=== PATIENT | male | born 1970 | race Caucasian/White ===

== ENCOUNTER 2016-06-16 13:33 | Emergency (ER) | payer OTHER ==
--- NOTE | 2016-06-16 14:56 | UC ---
Respiratory Complaint HPI - HPI Summary HPI Summary: . 45 yo male with PMH of HTN who presents with 3 days of nasal congestion, fever, non-productive cough, body aches, decreased appetite, BORJAS. Patient reports he has not taken his blood pressure medication in "days". No N/V/D. Denies ear pain or sore throat. Denies dizziness. Reports mild SOB, no CP - History of Current Complaint Chief Complaint: UCRespiratory Stated Complaint: FEVERISH,BODY ACHES Time Seen by Provider: 06/16/16 14:26 Hx Obtained From: Patient Onset/Duration: Gradual Onset Severity Initially: Moderate Severity Currently: Moderate Character: Cough: Nonproductive Aggravating Factors: Exertion, Deep Breaths Alleviating Factors: Nothing Associated Signs And Symptoms: Positive: Fever, Chills, URI, Nasal Congestion. Negative: Wheezing, Dizziness - Risk Factors Pulmonary Embolism Risk Factors: Negative Cardiac Risk Factors: Hypertension Pseudomonas Risk Factors: Negative Tuberculosis Risk Factors: Negative - Allergies/Home Medications Allergies/Adverse Reactions: Allergies Allergy/AdvReac Type Severity Reaction Status Date / Time Bee Venom Allergy Hives Verified 06/16/16 13:54 PMH/Surg Hx/FS Hx/Imm Hx Previously Healthy: No Cardiovascular History Of: Reports: Hypertension - Surgical History Surgical History: None - Family History Known Family History: Positive: Hypertension - Social History Occupation: Employed Full-time Lives: With Family Alcohol Use: Rare Substance Use Type: None Smoking Status (MU): Former Smoker Have You Smoked in the Last Year: No When Did the Patient Quit Smoking/Using Tobacco: 2006 - Immunization History Most Recent Influenza Vaccination: not this season Hx Tetanus, Diphtheria Vaccination: Yes Vaccination Up to Date: Yes Review of Systems Constitutional: Chills, Fatigue Skin: Negative Eyes: Negative ENT: Negative Respiratory: Shortness Of Breath, Cough Cardiovascular: Negative Gastrointestinal: Negative Genitourinary: Negative Motor: Negative Neurovascular: Negative Musculoskeletal: Negative Psychological: Negative All Other Systems Reviewed And Are Negative: Yes Physical Exam Triage Information Reviewed: Yes Appearance: No Pain Distress, Ill-Appearing, Obese Vital Signs: Initial Vital Signs Temp 99.3 F 06/16/16 13:55 Pulse 117 06/16/16 13:55 Resp 20 06/16/16 13:55 BP 184/113 06/16/16 13:55 Pulse Ox 97 06/16/16 13:55 Eyes: Positive: Conjunctiva Clear ENT: Positive: Pharynx normal, Nasal congestion, TMs normal Neck: Positive: Supple, Nontender, Tenderness @ - bilateral tonsilar nodes, Enlarged Nodes @ - tonsilar 2+ b/l Respiratory: Positive: Chest non-tender, No respiratory distress, Decreased breath sounds - right lower lobe. Negative: No accessory muscle use, Respiratory distress, Accessory muscle use Cardiovascular: Positive: RRR, No Murmur, Pulses Normal, Brisk Capillary Refill , Tachycardia Abdomen Description: Positive: Nontender, Soft. Negative: CVA Tenderness (R), CVA Tenderness (L), Distended, Guarding Bowel Sounds: Positive: Present Musculoskeletal: Positive: Strength Intact, ROM Intact Neurological: Positive: Alert Skin Exam: Normal UC Diagnostic Evaluation - Laboratory O2 Sat by Pulse Oximetry: 97 Respiratory Course/Dx - Differential Dx/Diagnosis Provider Diagnoses: 1. Influenza A. 2. tachycardiac concern for sepsis. 3. Hypertension, uncontrolled - Physician Notification/Consults Discussed Patient Care With: Claudia Bradshaw NP [facility] Time Discussed With Above Provider: 15:20 Instructed by Provider To: Transfer - by private car to [facility] Discharge - Discharge Plan Condition: Guarded Disposition: ADMITTED TO OTHER HOSPITAL Discharge Disposition Comment: [facility] Patient Education Materials: Influenza (ED) Referrals: Gianna Vega MD [Primary Care Provider] -
[2016-06-16 15:23] VITALS: BP 173/127
== END 2016-06-16 15:20 | disposition short-term general hospital (02) ==
LOC: UCCORT 13:33
DX: J10.1 Influenza due to other identified influenza virus with other respiratory manifestations (principal); R00.0 Tachycardia, unspecified; I10 Essential (primary) hypertension; E66.9 Obesity, unspecified; Z87.891 Personal history of nicotine dependence
CPT/HCPCS: 87502; 99213; G0463

== ENCOUNTER 2016-11-27 07:08 | Emergency (ER) | payer OTHER ==
--- NOTE | 2016-11-27 07:27 | UC ---
Ear Complaint HPI - HPI Summary HPI Summary: 46 yo male with left ear ache x days mild URI symptoms - History of Current Complaint Chief Complaint: UCEar Stated Complaint: EAR PAIN Time Seen by Provider: 11/27/16 07:20 Hx Obtained From: Patient Onset/Duration: Gradual Onset, Lasting Days Severity Initially: Mild Severity Currently: Moderate Pain Intensity: 4 Pain Scale Used: 0-10 Numeric Associated Signs/Symptoms: Positive: Hearing Loss, URI Symptoms - Allergies/Home Medications Allergies/Adverse Reactions: Allergies Allergy/AdvReac Type Severity Reaction Status Date / Time Bee Venom Allergy Hives Verified 11/27/16 07:12 Home Medications: Home Medications Diltiazem HCl Coated Beads [Cardizem 180 MG LA] 360 mg PO DAILY 11/27/16 [ History Confirmed 11/27/16] Propranolol TAB* [Inderal TAB*] 80 mg PO DAILY 11/27/16 [History Confirmed 11/27] PMH/Surg Hx/FS Hx/Imm Hx Previously Healthy: Yes Cardiovascular History: Hypertension - Surgical History Surgical History: None - Family History Known Family History: Positive: Hypertension, Diabetes - Social History Alcohol Use: Rare Substance Use Type: None Smoking Status (MU): Former Smoker Have You Smoked in the Last Year: No When Did the Patient Quit Smoking/Using Tobacco: 2006 - Immunization History Most Recent Influenza Vaccination: not this season Hx Tetanus, Diphtheria Vaccination: Yes Vaccination Up to Date: Yes Review of Systems Constitutional: Negative Skin: Negative Eyes: Negative ENT: Ear Ache Respiratory: Negative Cardiovascular: Negative Gastrointestinal: Negative Genitourinary: Negative Motor: Negative Neurovascular: Negative Musculoskeletal: Negative Neurological: Negative Psychological: Negative All Other Systems Reviewed And Are Negative: Yes Physical Exam Triage Information Reviewed: Yes Appearance: Well-Appearing, No Pain Distress, Well-Nourished Vital Signs: Initial Vital Signs Temp 98.1 F 11/27/16 07:16 Pulse 82 11/27/16 07:16 Resp 18 11/27/16 07:16 BP 177/118 11/27/16 07:16 Pulse Ox 97 11/27/16 07:16 Vital Signs Reviewed: Yes Eyes: Positive: Conjunctiva Clear ENT: Positive: TM bulging - LEFT, TM red - LEFT. Negative: Hearing grossly normal, Nasal congestion, Nasal drainage, Tonsillar exudate, Trismus, Muffled/ hoarse voice Neck: Positive: Supple, Nontender, No Lymphadenopathy Respiratory: Positive: Lungs clear, Normal breath sounds, No respiratory distress, No accessory muscle use Cardiovascular: Positive: RRR, No Murmur Musculoskeletal: Positive: ROM Intact, No Edema Neurological Exam: Normal Neurological: Positive: Alert Psychological Exam: Normal Skin Exam: Normal Ear Complaint Course/Dx - Differential Dx/Diagnosis Provider Diagnoses: left otitis media. hypertension/poorly controlled Discharge - Discharge Plan Condition: Stable Disposition: HOME Prescriptions: Amoxicillin PO (*) [Amoxicillin 875 MG (*)] 875 mg PO BID #20 tab Patient Education Materials: Otitis Media (ED) Referrals: Gianna Vega MD [Primary Care Provider] - 1 Week (ear and BP recheck) Additional Instructions: aleve or advil for pain recheck for worsening symptoms
[2016-11-27 07:39] VITALS: BP 172/126
== END 2016-11-27 07:37 | disposition home or self-care (01) ==
LOC: UCCORT 07:08
DX: H66.92 Otitis media, unspecified, left ear (principal); I10 Essential (primary) hypertension; Z91.030 Bee allergy status; Z87.891 Personal history of nicotine dependence
CPT/HCPCS: 99212; G0463

== ENCOUNTER 2017-10-22 12:31 | Emergency (ER) | payer OTHER ==
--- OUTSIDE RECORDS SUMMARY | 2017-10-22 12:36 | XMS REPORT ---
:1970 External Reference #:[id number] Author Organization [facility] Address [address] [place] [address] [place] [address] Phone [phone] Care Team Providers Name Role Phone Gianna Vega MD Primary Care Physician Unavailable Payers Type Date Identification Numbers Payment Provider Subscriber Commercial Policy Number: [id number] [employer] Carlie Reynolds PayID: [id number] [address] [place] [address] Medigap Part B Expires: 2012 Policy Number: [id number] [facility] Carlie Reynolds Group Number: [id number] [address] PayID: [id number] [place] [address] Problems Date Description Provider Status Onset: 03/22/2009 Obstructive sleep apnea syndrome Radha Teresa DNP, RN, Active [employer] Onset: 02/22/2015 Essential hypertension Marshal Mace.Kaya. Active Family History Date Family Member(s) Problem(s) Comments General Lupus General Hypertension General Diabetes General Cancer Father Liver Cancer Stage 4, HTN, Hyperlipidemia, ? 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 No Do you have problems with snoring, day time fatigue? Yes Patiet is on a CPAP. Allergies, Adverse Reactions, Alerts Date Description Reaction Status Severity Comments 06/05/2009 No Known Drug Allergy active Medications Medication Date Status Form Strength Qnty SIG Indications Ordering Provider Amlodipine 09/28 Active Tablets 2.5mg 30tab 1 by I10 Darryl Corcoran Bes s mouth Ordonez, DO every day FACC Inderal LA 05/26 Active Caps ER 160mg 90cap take one I15.9 Darryl S. 24HR s tablet Ordonez, DO once a FACC day Spironolactone 05/19 Active Tablets 25mg 30tab 1 by I15.9 Darryl S. s mouth Ordonez, DO every day FACC Chlorthalidone 04/16 Active Tablets 25mg 90tab 1 by I10 Darryl S. s mouth Ordonez, DO every day FACC Cpap With Heated 03/09 Active Device Use nightly Varn, N.P. Cpap Mask And 03/02 Active Device 1unit use G47.33 s nightly Varn, N.P. with cpap machine icd 10: g47.33 (occasion ally) Flonase Allergy 04/29 Active Suspension 50mcg/Act 16uni use as J01.10 ts directed Varn, N.P. 2 sprays in each nostril daily as needed Lisinopril 04/24 Active Tablets 40mg 60tab 1 by I10 s mouth Varn, N.P. every day Florastor 08/30 Hx Capsules 250mg 60cap 1 by R19.7 s mouth Varn, N.P. - twice a Hydralazine HCL 06/10 Hx Tablets 50mg 30tab Take one I15.9 Darryl S. s tablet Ordonez, DO - every 8 FACC 04/08 hours needed for top systolic BP > 180 mmHg or diastolic bottom BP > 100 mmHg Inderal LA 05/26 Hx Caps ER 120mg 60cap Take two I15.9 Darryl S. /2017 24HR s tablets DO José Luis - (240 mg) FACC 05/26 once a day Amlodipine 05/04 Hx Tablets 10mg 30tab Take one I10 Darryl S. Besylate s tablet by DO José Luis - mouth FACC 09/28 every day Motrin Ib 03/02 Hx Tablets 200mg 1-2 twice a day as Varn, N.P. - needed 05/19 Cardizem CD 08/25 Hx Caps ER 180mg 60cap take 1 I10 24HR s capsules Varn, N.P. - once 05/04 daily /2017 Azithromycin 06/26 Hx Tablets 250mg 6tabs two tabs day one, Varn, N.P. - one daily 07/06 till Tamiflu 06/17 Hx Capsules 75mg 10cap 1 by s mouth Varn, N.P. - twice a 06/22 day x days Cardizem CD 04/29 Hx Caps ER 360mg 1 by 24HR mouth Varn, N.P. - every day 04/29 Cardizem CD 04/29 Hx Caps ER 240mg 60cap 1 tab by 24HR s mouth Varn, N.P. - every day 08/25 in the morning Amoxicillin/Clavu 04/29 Hx Tablets 875-125mg 20tab one J01.10 lanate s tablet by Varn, N.P. - mouth 05/09 twice daily for 10 days Ramipril 02/25 Hx Capsules 10mg 60cap 2 by I10 s mouth Varn, N.P. - every day 04/29 Inderal LA 08/08 Hx Caps ER 120mg 30cap one po I15.9 24HR s daily Varn, N.P. - 05/26 Cardizem CD 07/14 Hx Caps ER 360mg 30cap one po 24HR s daily Varn, N.P. - 04/29 Cardizem CD 06/30 Hx Caps ER 240mg 30cap 1 by 24HR s mouth Varn, N.P. - every day 07/14 Cardizem CD 05/14 Hx Caps ER 120mg 30cap 1 by 24HR s mouth Varn, N.P. - every day 06/30 Viagra 03/25 Hx Tablets 50mg 18tab 1 tablet F52.21 s once Varn, N.P. - daily as 05/26 Escitalopram 02/22 Hx Tablets 10mg 30tab 1 by F41.9 Oxalate s mouth Varn, N.P. - every day 06/11 Augmentin 11/06 Hx Tablets 875-125mg 20tab one by 380.22 s mouth Varn, N.P. - every 12 08/05 hours ten days Metoprolol 09/13 Hx Tablets ER 50mg 30tab 1 by I10 Elba Succinate 24HR s mouth Varn, N.P. - every day 06/11 Chlorthalidone 08/30 Hx Tablets 25mg 30tab One 401.1 Magen s tablet PO Destiny, [employer] - once 09/13 daily. Amlodipine 08/16 Hx Tablets 5mg 30tab 2 by 401.1 Elba s mouth Varn, N.P. - every day 09/13 Metaxalone 08/16 Hx Tablets 800mg 30tab take 1 724.1 s tablet 3 Varn, N.P. - times a 08/30 day needed Lisinopril 06/15 Hx Tablets 40mg 30tab 1 by I10 s mouth Varn, N.P. - every day 06/11 Hydrochlorothiazi 06/15 Hx Tablets 25mg 30tab 1 by I10 Elba s mouth Varn, N.P. - every day 04/16 Transderm-Scop 11/29 Hx Patches 1.5mg 8unit apply one 272.4 72HR s patch Varn, N.P. - behind 02/25 ear 72 hours Lisinopril-Hydroc 11/29 Hx Tablets 20-25mg 90tab 1 by 401.1 Elba hlorothiazide s mouth Varn, N.P. - every day 06/15 Azithromycin 01/24 Hx Tablets 250mg 6tabs two tabs 461.9 day one, Varn, N.P. - one daily 02/03 till Fluticasone 01/24 Hx Suspension 50mcg/Act 16gm 1 spray 461.9 Elba Propionate each Varn, N.P. - nostril 02/23 daily needed Amoxicillin/Clavu 11/12 Hx Tablets 875-125mg 20tab one 461.9 Elba lanate Potassium s tablet by Varn, N.P. - mouth 11/22 twice daily for 10 days Transderm-Scop 10/22 Hx Patches 1.5mg 8unit apply one 994.6 72HR s patch Alirio, N.P. - behind 01/24 ear 72 hours Nasonex 10/08 Hx Suspension 50mcg/Act 3unit 2 sprays 477.9 s to each Varn, N.P. - nostril 01/24 daily Lisinopril/Hydroc 10/08 Hx Tablets 20-25mg 90tab take one 401.1 Elba hlorothiazide s tablet by Varmarshal, N.P. - mouth 11/29 daily Diovan HCT 04/01 Hx Tablets 160-12.5m 30tab 1 po qd Gianna Gilbert Mir M.D. 10/22 Amlodipine 04/01 Hx Tablets 5mg 30tab 1 po qd Gianna Besylate Gilbert Harvey M.D. 10/22 Levofloxacin 02/02 Hx Tablets 500mg 7tabs 1 po qd 380.10 Gilbert Juarez M.D., FACP 03/31 Diovan HCT 10/30 Hx Tablets 320-25mg 90tab 1 po qd 401.1 Gilbert Kumar M.D., FACP 02/02 Hydrochlorothiazi 08/12 Hx Tablets 12.5mg 90tab 1 po qd Kerrie Gilbert Kumar M.D., FACP 02/02 Diovan HCT 08/12 Hx Tablets 320-25mg 90tab 1 po qd s Gilbert uJarez M.D., FACP 04/01 Cyclobenzaprine 06/20 Hx Tablets 5mg 30tab 1 by s mouth at Ann, - bedtime M.Frances, FACP 08/06 as needed for back pain Physical Therapy 06/20 Hx for upper back pain Gilbert Juarez M.D., FACP 08/06 Augmentin 01/21 Hx Tablets 875-125mg 20tab one by s mouth Ann, - every 12 M.D., FACP 01/31 hours ten days Flonase 01/21 Hx Suspension 50mcg/Act 1unit 1 s intranasa Gilbert Juarez puparvin to Charmaine, FACP 10/30 nostril daily Diovan HCT 00 Hx Tablets 320-12.5m 90tab 1 tablet Gianna /0000 g s daily Gilbert Vega M.D. 08/12 Mucinex Hx Tablets ER 600mg 60tab 1 tab bid Unknown /0000 12HR s po prn - 05/05 Immunizations CPT Code Status Date Vaccine Lot # [id number] Given 01/22/2009 Tdap - Tetanus/Diptheria/Acellular Pertussis Vital Signs Date Vital Result Comment 09/28/2017 Height 65 inches 5'5" Weight 236.00 lb Heart Rate 62 /min BP Systolic Sitting 115 mmHg left arm BP Diastolic Sitting 60 mmHg left arm BP Systolic Standing 120 mmHg left arm BP Diastolic Standing 64 mmHg left arm BMI (Body Mass Index) 39.3 kg/m2 Ejection Fraction 55-60% 04-22-2017 08/30/2017 Weight 238.00 lb Heart Rate 71 /min BP Systolic 120 mmHg BP Diastolic 78 mmHg Body Temperature 97.5 F O2 % BldC Oximetry 96 % 07/19/2017 Height 65 inches 5'5" Weight 236.12 lb Heart Rate 68 /min BP Systolic Sitting 100 mmHg Lue large cuff BP Diastolic Sitting 70 mmHg Lue large cuff Respiratory Rate 18 /min O2 % BldC Oximetry 96 % On Ra BMI (Body Mass Index) 39.3 kg/m2 06/10/2017 Height 65 inches 5'5" Weight 239.00 lb with shoes Heart Rate 66 /min BP Systolic Sitting 120 mmHg Rue lrg cuff BP Diastolic Sitting 90 mmHg Rue lrg cuff BP Systolic Standing 118 mmHg Rue lrg cuff BP Diastolic Standing 78 mmHg Rue lrg cuff Respiratory Rate 17 /min BMI (Body Mass Index) 39.8 kg/m2 Ejection Fraction 55-60% 04/22/2017-echo 05/27/2017 Height 65 inches 5'5" Weight 237.00 lb with shoes Heart Rate 74 /min BP Systolic Sitting 120 mmHg Lue large cuff BP Diastolic Sitting 80 mmHg Lue large cuff Respiratory Rate 16 /min O2 % BldC Oximetry 95 % On Ra BMI (Body Mass Index) 39.4 kg/m2 05/26/2017 Height 65 inches 5'5" Weight 237.00 lb Heart Rate 74 /min BP Systolic Sitting 134 mmHg Rue large cuff BP Diastolic Sitting 102 mmHg Rue large cuff BP Systolic Standing 136 mmHg Rue BP Diastolic Standing 102 mmHg Rue BP Systolic Recheck 132 mmHg home wrist cuff BP Diastolic Recheck 96 mmHg home wrist cuff Respiratory Rate 16 /min BMI (Body Mass Index) 39.4 kg/m2 Ejection Fraction 55-60% 04/22/17 05/19/2017 Height 65.25 inches 5'5.25" Weight 236.00 lb without shoes Heart Rate 70 /min BP Systolic 140 mmHg Rue lg cuff BP Diastolic 110 mmHg Rue lg cuff BP Systolic Sitting 148 mmHg Lue lg cuff BP Diastolic Sitting 110 mmHg Lue lg cuff BP Systolic Standing 152 mmHg Lue lg cuff BP Diastolic Standing 118 mmHg Lue lg cuff Respiratory Rate 17 /min BMI (Body Mass Index) 39.0 kg/m2 Ejection Fraction 55-60% date 04/22/17 Echo 05/04/2017 Height 65.25 inches 5'5.25" Weight 239.00 lb Heart Rate 71 /min BP Systolic 136 mmHg his machine 158/106 BP Diastolic 82 mmHg his machine 158/106 O2 % BldC Oximetry 97 % BMI (Body Mass Index) 39.5 kg/m2 04/16/2017 Height 65.25 inches 5'5.25" Weight 241.00 lb Heart Rate 64 /min BP Systolic 170 mmHg BP Diastolic 120 mmHg BP Systolic Sitting 182 mmHg BP Diastolic Sitting 120 mmHg O2 % BldC Oximetry 98 % BMI (Body Mass Index) 39.8 kg/m2 03/02/2017 Height 65.25 inches 5'5.25" Weight 236.00 lb Heart Rate 52 /min BP Systolic 150 mmHg BP Diastolic 84 mmHg Body Temperature 97.7 F O2 % BldC Oximetry 98 % BMI (Body Mass Index) 39.0 kg/m2 Waist Circumference 48 08/25/2016 Heart Rate 67 /min BP Systolic 138 mmHg BP Diastolic 86 mmHg Body Temperature 96.9 F O2 % BldC Oximetry 97 % 06/22/2016 Weight 229.00 lb with shoes Heart Rate 56 /min BP Systolic 128 mmHg BP Diastolic 86 mmHg Body Temperature 98.2 F O2 % BldC Oximetry 97 % 04/29/2016 Weight 235.00 lb With Shoes Heart Rate 64 /min BP Systolic Sitting 140 mmHg BP Diastolic Sitting 96 mmHg O2 % BldC Oximetry 96 % 02/26/2016 Height 65 inches 5'5" Weight 231.00 lb Heart Rate 59 /min BP Systolic 124 mmHg BP Diastolic 90 mmHg Body Temperature 98.0 F O2 % BldC Oximetry 97 % BMI (Body Mass Index) 38.4 kg/m2 11/20/2015 Weight 224.00 lb Heart Rate 76 /min BP Systolic Sitting 138 mmHg BP Diastolic Sitting 82 mmHg Respiratory Rate 15 /min Body Temperature 97.8 F O2 % BldC Oximetry 98 % 08/09/2015 Weight 228.00 lb Heart Rate 90 /min BP Systolic Sitting 142 mmHg BP Diastolic Sitting 88 mmHg Respiratory Rate 15 /min Body Temperature 98.4 F O2 % BldC Oximetry 97 % 06/12/2015 Weight 226.00 lb Heart Rate 88 /min BP Systolic Sitting 138 mmHg BP Diastolic Sitting 100 mmHg Respiratory Rate 15 /min Body Temperature 98.2 F O2 % BldC Oximetry 98 % 03/25/2015 Weight 227.75 lb Heart Rate 77 /min BP Systolic Sitting 148 mmHg BP Diastolic Sitting 100 mmHg BP Systolic Recheck 150 mmHg BP Diastolic Recheck 98 mmHg Body Temperature 98.8 F O2 % BldC Oximetry 97 % 02/22/2015 Height 64.5 inches 5'4.50" Weight 226.00 lb Heart Rate 74 /min BP Systolic Sitting 132 mmHg BP Diastolic Sitting 87 mmHg Body Temperature 98.6 F O2 % BldC Oximetry 96 % BMI (Body Mass Index) 38.2 kg/m2 11/06/2014 Heart Rate 74 /min BP Systolic Sitting 140 mmHg BP Diastolic Sitting 93 mmHg 10/05/2014 Weight 223.00 lb Heart Rate 68 /min BP Systolic Sitting 124 mmHg BP Diastolic Sitting 75 mmHg Body Temperature 97.4 F 10/05/2014 Height 65 inches 5'5" Heart Rate 73 /min BP Systolic Sitting 136 mmHg BP Diastolic Sitting 74 mmHg Respiratory Rate 18 /min O2 % BldC Oximetry 98 % Neck Circumference in inches 18 09/13/2014 Height 65 inches 5'5" Weight 224.00 lb Heart Rate 88 /min BP Systolic 149 mmHg BP Diastolic 105 mmHg BMI (Body Mass Index) 37.3 kg/m2 08/30/2014 Height 65 inches 5'5" Weight 223.00 lb Heart Rate 87 /min BP Systolic 133 mmHg BP Diastolic 97 mmHg BMI (Body Mass Index) 37.1 kg/m2 08/16/2014 Weight 220.75 lb Heart Rate 91 /min BP Systolic 150 mmHg pt brought machine BP Diastolic 105 mmHg pt brought machine BP Systolic Sitting 129 mmHg our machine BP Diastolic Sitting 90 mmHg our machine 06/15/2014 Weight 223.75 lb Heart Rate 75 /min BP Systolic Sitting 136 mmHg BP Diastolic Sitting 91 mmHg 06/01/2014 Weight 221.50 lb Heart Rate 77 /min BP Systolic Sitting 150 mmHg BP Diastolic Sitting 107 mmHg O2 % BldC Oximetry 97 % 11/29/2013 Height 65 inches 5'5" Weight 217.00 lb Heart Rate 76 /min BP Systolic Sitting 110 mmHg BP Diastolic Sitting 74 mmHg Body Temperature 99.5 F BMI (Body Mass Index) 36.1 kg/m2 10/04/2013 Height 65 inches 5'5" Weight 215.00 lb Heart Rate 78 /min BP Systolic Sitting 129 mmHg BP Diastolic Sitting 94 mmHg Body Temperature 98.7 F BMI (Body Mass Index) 35.8 kg/m2 05/05/2013 Weight 217.75 lb Heart Rate 80 /min BP Systolic 120 mmHg BP Diastolic 84 mmHg 04/21/2013 Weight 216.25 lb Heart Rate 78 /min BP Systolic Sitting 130 mmHg BP Diastolic Sitting 84 mmHg Body Temperature 98.0 F 01/25/2012 Height 66.5 inches 5'6.50" Weight 209.00 lb Heart Rate 76 /min BP Systolic Sitting 136 mmHg BP Diastolic Sitting 80 mmHg Body Temperature 99.1 F BMI (Body Mass Index) 33.2 kg/m2 12/22/2011 Height 66.5 inches 5'6.50" Weight 208.00 lb Heart Rate 68 /min BP Systolic Sitting 126 mmHg BP Diastolic Sitting 86 mmHg Body Temperature 98.8 F BMI (Body Mass Index) 33.1 kg/m2 11/13/2011 Height 66.5 inches 5'6.50" Weight 210.00 lb Heart Rate 72 /min BP Systolic Sitting 132 mmHg BP Diastolic Sitting 80 mmHg BMI (Body Mass Index) 33.4 kg/m2 10/23/2011 Height 66.5 inches 5'6.50" Weight 206.75 lb Heart Rate 68 /min BP Systolic Sitting 120 mmHg BP Diastolic Sitting 90 mmHg BMI (Body Mass Index) 32.9 kg/m2 10/09/2011 Height 66.5 inches 5'6.50" Weight 208.00 lb Heart Rate 76 /min BP Systolic Sitting 130 mmHg BP Diastolic Sitting 92 mmHg BMI (Body Mass Index) 33.1 kg/m2 03/31/2011 Height 66.5 inches 5'6.50" Weight 212.50 lb Heart Rate 78 /min BP Systolic Sitting 122 mmHg l BP Diastolic Sitting 94 mmHg l BMI (Body Mass Index) 33.8 kg/m2 02/02/2011 Height 66.5 inches 5'6.50" Weight 216.00 lb Heart Rate 64 /min BP Systolic Sitting 148 mmHg L BP Diastolic Sitting 92 mmHg L Body Temperature 99.4 F BMI (Body Mass Index) 34.3 kg/m2 10/30/2010 Height 66.5 inches 5'6.50" Weight 210.00 lb Heart Rate 82 /min BP Systolic Sitting 124 mmHg BP Diastolic Sitting 88 mmHg Body Temperature 98.8 F BMI (Body Mass Index) 33.4 kg/m2 08/06/2010 Weight 206.00 lb Heart Rate 72 /min BP Systolic Sitting 132 mmHg BP Diastolic Sitting 78 mmHg 06/20/2010 Weight 212.00 lb Heart Rate 78 /min BP Systolic 120 mmHg BP Diastolic 90 mmHg 05/13/2010 Weight 208.75 lb Heart Rate 80 /min BP Systolic 110 mmHg BP Diastolic 80 mmHg 02/05/2010 Weight 202.75 lb Heart Rate 82 /min BP Systolic 118 mmHg BP Diastolic 88 mmHg 01/21/2010 Weight 206.25 lb Heart Rate 72 /min BP Systolic 134 mmHg Pt. reports hasn't taken Diovan over a mo. BP Diastolic 96 mmHg Pt. reports hasn't taken Diovan over a mo. Body Temperature 99.0 F Results Test Date Test Result H/L Range Note Laboratory test finding 06/18/2017 Aldolase 4.5 U/L <7.7 1, 2 Renin 10 ng/mL/h 1, 3 Aldosterone 17 ng/dL <=21 1, 4 Laboratory test finding 06/10/2017 Renin <pending> Aldosterone <pending> Basic Metabolic Panel 05/27/2017 Sodium 135 mmol/L 133-145 Potassium 3.5 mmol/L 3.5-5.0 Chloride 97 mmol/L Low 101-111 Co2 Carbon Dioxide 27 mmol/L 22-32 Anion Gap 11 mmol/L 2-11 Glucose 140 mg/dL High 70-100 Blood Urea Nitrogen 28 mg/dL High 6-24 Creatinine 1.44 mg/dL High 0.67-1.17 BUN/Creatinine Ratio 19.4 8-20 Calcium 10.5 mg/dL High 8.6-10.3 Egfr Non- 52.6 >60 Egfr 67.6 >60 5 Laboratory test finding 05/25/2017 Hemoglobin A1c (Glyco 4.9 % 4.0-5.6 6 HGB) Creatinine Clearance 04/19/2017 Creatinine 1.12 mg/dL High 0.51-0.95 Urine Collection Time 24 Urine Total Volume 1900 mL Urine Random Creatinine 154.18 mg/dL Creatinine Clearance 182 mL/min High 97-137 Total Protein 24HR Urine 04/19/2017 Urine Collection Time 24 Urine Total Volume 1900 mL Urine Random Total Protein 11 mg/dL Urine Total Protein/24HR 209 mg/24Hr High 0-165 Lipid Profile (Trig/Chol/HDL) 02/27/2017 Triglycerides 188 mg/dL 7 Cholesterol 218 mg/dL 8 HDL Cholesterol 32.2 mg/dL 9 LDL Cholesterol 148 mg/dL 10 Comp Metabolic Panel 02/27/2017 Sodium 139 mmol/L 133-145 Potassium 4.0 mmol/L 3.5-5.0 Chloride 102 mmol/L 101-111 Co2 Carbon Dioxide 32 mmol/L 22-32 Anion Gap 5 mmol/L 2-11 Glucose 103 mg/dL High 70-100 Blood Urea Nitrogen 17 mg/dL 6-24 Creatinine 1.21 mg/dL High 0.67-1.17 BUN/Creatinine Ratio 14.0 8-20 Calcium 9.9 mg/dL 8.6-10.3 Total Protein 6.7 g/dL 6.4-8.9 Albumin 4.6 g/dL 3.2-5.2 Globulin 2.1 g/dL 2-4 Albumin/Globulin Ratio 2.2 1-3 Total Bilirubin 0.90 mg/dL 0.2-1.0 Alkaline Phosphatase 63 U/L 34-104 Alt 14 U/L 7-52 Ast 18 U/L 13-39 Egfr Non- 64.3 >60 Egfr 82.7 >60 11 Rapid Influenza A & B 06/16/2016 Influenza A Molecular POSITIVE Negative 12 Molecular Influenza B Molecular NEGATIVE Negative Lipid Profile (Trig/Chol/HDL) 02/24/2016 Triglycerides 166 mg/dL 13 Cholesterol 194 mg/dL 14 HDL Cholesterol 37.2 mg/dL 15 LDL Cholesterol 124 mg/dL 16 Comp Metabolic Panel 02/24/2016 Sodium 136 mmol/L 133-145 Potassium 3.7 mmol/L 3.5-5.0 Chloride 100 mmol/L Low 101-111 Co2 Carbon Dioxide 31 mmol/L 22-32 Anion Gap 5 mmol/L 2-11 Glucose 92 mg/dL 70-100 Blood Urea Nitrogen 10 mg/dL 6-24 Creatinine 1.03 mg/dL 0.67-1.17 BUN/Creatinine Ratio 9.7 8-20 Calcium 9.5 mg/dL 8.6-10.3 Total Protein 6.6 g/dL 6.4-8.9 Albumin 4.3 g/dL 3.2-5.2 Globulin 2.3 g/dL 2-4 Albumin/Globulin Ratio 1.9 1-3 Total Bilirubin 1.10 mg/dL High 0.2-1.0 Alkaline Phosphatase 56 U/L 34-104 Alt 16 U/L 7-52 Ast 19 U/L 13-39 Egfr Non- 77.7 >60 Egfr 100.0 >60 17 Urine Metanephrines 24HR 10/28/2015 Urine Metanephrine 154 mcg/24h 18 Urine Normetanephrine 337 mcg/24h 19 Urine Total Metanephrines 491 mcg/24h 20 Urine Collection Duration 24 h Urine Volume 1000 mL 21 Urine Vma 24HR 10/28/2015 Urine Vma, Adult 3.8 mg/24h <8.0 Urine Collection Duration 24 h Urine Total Volume 1000 mL 22 Creatinine 24HR Urine 07/22/2015 Urine Collection Time 24 23 Urine Total Volume 1900 mL 23 Urine Random Creatinine 140.63 mg/dL 23 Urine Creatinine/24HR 2671.97 mg/24Hr High 600-1800 23 Total Protein 24HR Urine 07/22/2015 Urine Random Total Protein 10 mg/dL 23 Urine Total Protein/24HR 190 mg/24Hr High 0-165 23 Laboratory test 03/18/2015 Hemoglobin A1c (Glyco 5.0 % Less than 6.0 24 finding HGB) Comp Metabolic Panel 03/18/2015 Sodium 136 mmol/L 133-145 Potassium 3.8 mmol/L 3.5-5.0 Chloride 100 mmol/L Low 101-111 Co2 Carbon Dioxide 30 mmol/L 22-32 Anion Gap 6 mmol/L 2-11 Glucose 95 mg/dL 70-100 Blood Urea Nitrogen 14 mg/dL 6-24 Creatinine 1.26 mg/dL High 0.67-1.17 BUN/Creatinine Ratio 11.1 8-20 Calcium 9.7 mg/dL 8.6-10.3 Total Protein 6.6 g/dL 6.4-8.9 Albumin 4.5 g/dL 3.2-5.2 Globulin 2.1 g/dL 2-4 Albumin/Globulin Ratio 2.1 1-3 Total Bilirubin 1.10 mg/dL High 0.2-1.0 Alkaline Phosphatase 49 U/L 34-104 Alt 21 U/L 7-52 Ast 24 U/L 13-39 Egfr Non- 61.9 >60 Egfr 79.6 >60 25 Lipid Profile (Trig/Chol/HDL) 02/26/2015 Triglycerides 226 mg/dL 26 Cholesterol 191 mg/dL 27 HDL Cholesterol 33.5 mg/dL 28 LDL Cholesterol 112 mg/dL 29 Comp Metabolic Panel 02/26/2015 Sodium 136 mmol/L 133-145 Potassium 4.3 mmol/L 3.5-5.0 Chloride 101 mmol/L 101-111 Co2 Carbon Dioxide 29 mmol/L 22-32 Anion Gap 6 mmol/L 2-11 Glucose 131 mg/dL High 70-100 Blood Urea Nitrogen 22 mg/dL 6-24 Creatinine 1.28 mg/dL High 0.67-1.17 BUN/Creatinine Ratio 17.2 8-20 Calcium 9.6 mg/dL 8.6-10.3 Total Protein 6.6 g/dL 6.4-8.9 Albumin 4.4 g/dL 3.2-5.2 Globulin 2.2 g/dL 2-4 Albumin/Globulin Ratio 2.0 1-3 Total Bilirubin 1.10 mg/dL High 0.2-1.0 Alkaline Phosphatase 46 U/L 34-104 Alt 18 U/L 7-52 Ast 19 U/L 13-39 Egfr Non- 60.8 >60 Egfr 78.2 >60 30 Laboratory test finding 09/14/2014 Cortisol 11.91 ?g/dL 31 Comp Metabolic Panel 09/14/2014 Sodium 138 mmol/L 133-145 Potassium 4.0 mmol/L 3.5-5.0 Chloride 103 mmol/L 101-111 Co2 Carbon Dioxide 28 mmol/L 22-32 Anion Gap 7 mmol/L 2-11 Glucose 100 mg/dL 70-100 Blood Urea Nitrogen 21 mg/dL 6-24 Creatinine 1.24 mg/dL High 0.67-1.17 BUN/Creatinine Ratio 16.9 8-20 Calcium 9.6 mg/dL 8.6-10.3 Total Protein 6.5 g/dL 6.4-8.9 Albumin 4.4 g/dL 3.2-5.2 Globulin 2.1 g/dL 2-4 Albumin/Globulin Ratio 2.1 1-3 Total Bilirubin 0.60 mg/dL 0.2-1.0 Alkaline Phosphatase 53 U/L 34-104 Alt 15 U/L 7-52 Ast 17 U/L 13-39 Egfr Non- 63.3 >60 Egfr 81.4 >60 32 Laboratory test finding 09/14/2014 Ferritin 277.5 ng/mL 24-336 Lyme Disease Serology Negative Negative 33 CMP Panel 08/30/2014 Sodium 137 mmol/L 133-145 Potassium 4.1 mmol/L 3.5-5.0 Chloride 100 mmol/L Low 101-111 Co2 Carbon Dioxide 30 mmol/L 22-32 Anion Gap 7 mmol/L 2-11 Glucose 142 mg/dL High 70-100 Blood Urea Nitrogen 20 mg/dL 6-24 Creatinine 1.29 mg/dL High 0.67-1.17 BUN/Creatinine Ratio 15.5 8-20 Calcium 9.7 mg/dL 8.6-10.3 Total Protein 6.8 g/dL 6.4-8.9 Albumin 4.6 g/dL 3.2-5.2 Globulin 2.2 g/dL 2-4 Albumin/Globulin Ratio 2.1 1-3 Total Bilirubin 0.90 mg/dL 0.2-1.0 Alkaline Phosphatase 52 U/L 34-104 Alt 21 U/L 7-52 Ast 22 U/L 13-39 Egfr Non- 60.5 >60 Egfr 77.8 >60 34 Laboratory test finding 11/28/2013 Glucose 102 mg/dL High 70-100 Lipid Profile (Trig/Chol/HDL) 11/28/2013 Triglycerides 343 mg/dL 35 Cholesterol 198 mg/dL 36 HDL Cholesterol 31.8 mg/dL 37 LDL Cholesterol 98 mg/dL 38 Laboratory test finding 06/02/2013 PSA Diagnostic 1.050 ng/mL 0-4.0 39 Laboratory test finding 04/21/2013 Glucose Fingerstick 83 Laboratory test finding 04/21/2013 TSH (Thyroid Stimulating 2.27 miu/mL 0.34-5.60 Horm) Comp Metabolic Panel 04/21/2013 Sodium 139 mmol/L 133-145 Potassium 4.0 mmol/L 3.5-5.0 Chloride 101 mmol/L 101-111 Co2 Carbon Dioxide 31.0 mmol/L 22-32 Anion Gap 7.0 mmol/L 2-11 Glucose 79 mg/dL 70-100 Blood Urea Nitrogen 22 mg/dL 6-24 Creatinine 1.30 mg/dL 0.50-1.40 BUN/Creatinine Ratio 16.9 8-20 Calcium 10.0 mg/dL High 8.1-9.9 Total Protein 6.6 g/dL 6.2-8.1 Albumin 4.7 g/dL 3.6-5.4 Globulin 1.9 g/dL Low 2-4 Albumin/Globulin Ratio 2.5 1-3 Total Bilirubin 1.1 mg/dL 0.4-1.5 Alkaline Phosphatase 64 U/L 30-110 Alt 26 U/L 14-54 Ast 26 U/L 12-42 Egfr Non- 60.2 >60 Egfr 77.5 >60 40 CBC With Manual Diff 04/21/2013 White Blood Count 11.3 10^3/uL High 4.8- 10.8 Red Blood Count 5.96 10^6/uL High 4.0-5.4 Hemoglobin 17.6 g/dL 14.0-18.0 Hematocrit 51 % 42-52 Mean Corpuscular Volume 85 fL 80-94 Mean Corpuscular Hemoglobin 30 pg 27-31 Mean Corpuscular HGB Conc 35 g/dL 31-36 Red Cell Distribution Width 13 % 10.5-15 Platelet Count 266 10^3/uL 150-450 Mean Platelet Volume 8 um3 7.4-10.4 Abs Neutrophils 8.1 10^3/uL High 1.5-7.7 Abs Lymphocytes 2.3 10^3/uL 1.0-4.8 Abs Monocytes 0.7 10^3/uL 0-0.8 Abs Eosinophils 0.1 10^3/uL 0-0.6 Abs Basophils 0 10^3/uL 0-0.2 Abs Nucleated RBC 0.09 10^3/uL Neutrophil % 71 % 38-83 Lymphocytes % 19 % Low 25-47 Monocytes % 9 % 0-13 Eosinophils % 1 % 0-6 RBC Morphology Normal Normal Laboratory test finding 05/26/2012 PSA Diagnostic 0.97 ng/mL 0-4.0 41 1 POLA CALLED DONNA TO CORRECT THE TEST AFTER THE OFFICE CALLED. 06/21/17 8085 TALKED TO CAROLA Downey Test Performed by: [facility] - [address] [address] REFERENCE VALUE (Peripheral vein specimen) Na-deplete, upright: Mean: 5.9 Range: 2.9-10.8 Na-replete, upright: Mean: 1.0 Range: < or=0.6-3.0 ADDITIONAL INFORMATION Testing performed by Liquid Chromatography-Tandem Mass Spectrometry (LC-MS/MS). This test was developed and its performance characteristics determined by [facility] in a manner consistent with CLIA requirements. This test has not been cleared or approved by the U.S. Food and Drug Administration. Test Performed by: [facility] [employer] - [facility] [address] [place] [address] 4 ADDITIONAL INFORMATION Reference range for patients 11 years and older is based on upright A.M. collection from subjects without sodium restrictions. This test was developed and its performance characteristics determined by [facility] in a manner consistent with CLIA requirements. This test has not been cleared or approved by the U.S. Food and Drug Administration. Test Performed by: [facility] [address] [facility], [place] [address] 5 Because ethnic data is not always readily available, this report includes an eGFR for both -Americans and non- Americans. The National Kidney Disease Education Program (NKDEP) does not endorse the use of the MDRD equation for patients that are not between the ages of 18 and 70, are , have extremes of body size, muscle mass, or nutritional status, or are non- or non-. According to the National Kidney Foundation, irrespective of diagnosis, the stage of the disease is based on the level of kidney function: Stage Description GFR(mL/min/1.73 m(2)) 1 Kidney damage with normal or decreased GFR 90 2 Kidney damage with mild decrease in GFR 60-89 3 Moderate decrease in GFR 30-59 4 Severe decrease in GFR 15-29 5 Kidney failure <15 (or dialysis) 6 Therapeutic target for the treatment of diabetes mellitus patients is <7% HBA1C, and in selective patients <6.0%. Please refer to [place] [employer] Association diabetic care guidelines for further information. 7 Desirable: <150 Borderline High: 150-199 High: 200-499 Very High: >500 8 Desirable: <200 Borderline High: 200-239 High: >239 9 Low: <40 Desirable: 40-60 High: >60 10 Desirable: <100 Near Optimal: 100-129 Borderline High: 130-159 High: 160-189 Very High: >189 11 Because ethnic data is not always readily available, this report includes an eGFR for both -Americans and non- Americans. The National Kidney Disease Education Program (NKDEP) does not endorse the use of the MDRD equation for patients that are not between the ages of 18 and 70, are , have extremes of body size, muscle mass, or nutritional status, or are non- or non-. According to the National Kidney Foundation, irrespective of diagnosis, the stage of the disease is based on the level of kidney function: Stage Description GFR(mL/min/1.73 m(2)) 1 Kidney damage with normal or decreased GFR 90 2 Kidney damage with mild decrease in GFR 60-89 3 Moderate decrease in GFR 30-59 4 Severe decrease in GFR 15-29 5 Kidney failure <15 (or dialysis) 12 Fire Production Operator: [id number] MONSE DONIS 13 Desirable <150 Borderline high 150-199 High 200-499 Very High >500 14 Desirable <200 Borderline high 200-239 High >239 15 Low <40 Desirable: 40-60 High: >60 16 Desirable: <100 mg/dL Near Optimal: 100-129 mg/dL Borderline High: 130-159 mg/dL High: 160-189 mg/dL Very High: >189 mg/dL 17 Because ethnic data is not always readily available, this report includes an eGFR for both -Americans and non- Americans. The National Kidney Disease Education Program (NKDEP) does not endorse the use of the MDRD equation for patients that are not between the ages of 18 and 70, are , have extremes of body size, muscle mass, or nutritional status, or are non- or non-. According to the National Kidney Foundation, irrespective of diagnosis, the stage of the disease is based on the level of kidney function: Stage Description GFR(mL/min/1.73 m(2)) 1 Kidney damage with normal or decreased GFR 90 2 Kidney damage with mild decrease in GFR 60-89 3 Moderate decrease in GFR 30-59 4 Severe decrease in GFR 15-29 5 Kidney failure <15 (or dialysis) 18 REFERENCE VALUE [id number] (Normotensive) <400 (Hypertensive) 19 REFERENCE VALUE [id number] (Normotensive) <900 (Hypertensive) 20 REFERENCE VALUE [phone] (Normotensive) <1300 (Hypertensive) 21 Test Performed by: [facility] - [address] [address] Head Of Stock: Dwayne Tejeda II, M.D., Ph.D. 22 Test Performed by: [facility] - [address] [place] [address] Head Of Stock: Dwayne Tejeda II, M.D., Ph.D. 23 24 HR COLLECTION STARTED: 07/20/09 0700AM ENDED: 07/22/15 0600AM 24 Therapeutic target for the treatment of diabetes Mellitus patients is <7% HBA1C, and in selective patients <6.0%.Please refer to [place] [employer] Diabetic care guidelines for further information. 25 Because ethnic data is not always readily available, this report includes an eGFR for both -Americans and non- Americans. The National Kidney Disease Education Program (NKDEP) does not endorse the use of the MDRD equation for patients that are not between the ages of 18 and 70, are , have extremes of body size, muscle mass, or nutritional status, or are non- or non-. According to the National Kidney Foundation, irrespective of diagnosis, the stage of the disease is based on the level of kidney function: Stage Description GFR(mL/min/1.73 m(2)) 1 Kidney damage with normal or decreased GFR 90 2 Kidney damage with mild decrease in GFR 60-89 3 Moderate decrease in GFR 30-59 4 Severe decrease in GFR 15-29 5 Kidney failure <15 (or dialysis) 26 Desirable <150 Borderline high 150-199 High 200-499 Very High >500 27 Desirable <200 Borderline high 200-239 High >239 28 Low <40 Desirable: 40-60 High: >60 29 Desirable: <100 mg/dL Near Optimal: 100-129 mg/dL Borderline High: 130-159 mg/dL High: 160-189 mg/dL Very High: >189 mg/dL 30 Because ethnic data is not always readily available, this report includes an eGFR for both -Americans and non- Americans. The National Kidney Disease Education Program (NKDEP) does not endorse the use of the MDRD equation for patients that are not between the ages of 18 and 70, are , have extremes of body size, muscle mass, or nutritional status, or are non- or non-. According to the National Kidney Foundation, irrespective of diagnosis, the stage of the disease is based on the level of kidney function: Stage Description GFR(mL/min/1.73 m(2)) 1 Kidney damage with normal or decreased GFR 90 2 Kidney damage with mild decrease in GFR 60-89 3 Moderate decrease in GFR 30-59 4 Severe decrease in GFR 15-29 5 Kidney failure <15 (or dialysis) 31 AM 8.7-22.4 PM <10 32 Because ethnic data is not always readily available, this report includes an eGFR for both -Americans and non- Americans. The National Kidney Disease Education Program (NKDEP) does not endorse the use of the MDRD equation for patients that are not between the ages of 18 and 70, are , have extremes of body size, muscle mass, or nutritional status, or are non- or non-. According to the National Kidney Foundation, irrespective of diagnosis, the stage of the disease is based on the level of kidney function: Stage Description GFR(mL/min/1.73 m(2)) 1 Kidney damage with normal or decreased GFR 90 2 Kidney damage with mild decrease in GFR 60-89 3 Moderate decrease in GFR 30-59 4 Severe decrease in GFR 15-29 5 Kidney failure <15 (or dialysis) 33 Serologic response to B. burgdorferi infection is not detected, but cannot rule out early infection during which low or undetectable antibody levels to B. burgdorferi may be present. If clinically indicated, a new serum specimen should be submitted in 7-14 days. Test Performed by: [place] [address] Head Of Stock: Dwayne Tejeda II, M.D., Ph.D. 34 Because ethnic data is not always readily available, this report includes an eGFR for both -Americans and non- Americans. The National Kidney Disease Education Program (NKDEP) does not endorse the use of the MDRD equation for patients that are not between the ages of 18 and 70, are , have extremes of body size, muscle mass, or nutritional status, or are non- or non-. According to the National Kidney Foundation, irrespective of diagnosis, the stage of the disease is based on the level of kidney function: Stage Description GFR(mL/min/1.73 m(2)) 1 Kidney damage with normal or decreased GFR 90 2 Kidney damage with mild decrease in GFR 60-89 3 Moderate decrease in GFR 30-59 4 Severe decrease in GFR 15-29 5 Kidney failure <15 (or dialysis) 35 Desirable <150 Borderline high 150-199 High 200-499 Very High >500 36 Desirable <200 Borderline high 200-239 High >239 37 Low <40 Desirable: 40-60 High: >60 38 Desirable <100 Near Optimal 100-129 Borderline high 130-159 High 160-189 Very High >189 39 Serum levels of PSA measured using the [employer] DXI [employer]br[employer] immunoassay should not be interpreted as absolute evidence of the presence or absence of disease. The PSA value should be used in conjunction with other pertinent clinical diagnostic procedures. The values obtained with different assay methods or kits cannot be used interchangeably. 40 Because ethnic data is not always readily available, this report includes an eGFR for both -Americans and non- Americans. The National Kidney Disease Education Program (NKDEP) does not endorse the use of the MDRD equation for patients that are not between the ages of 18 and 70, are , have extremes of body size, muscle mass, or nutritional status, or are non- or non-. According to the National Kidney Foundation, irrespective of diagnosis, the stage of the disease is based on the level of kidney function: Stage Description GFR(mL/min/1.73 m(2)) 1 Kidney damage with normal or decreased GFR 90 2 Kidney damage with mild decrease in GFR 60-89 3 Moderate decrease in GFR 30-59 4 Severe decrease in GFR 15-29 5 Kidney failure <15 (or dialysis) 41 Serum levels of PSA measured using the [employer] DXI Hybritech immunoassay should not be interpreted as absolute evidence of the presence or absence of disease. The PSA value should be used in conjunction with other pertinent clinical diagnostic procedures. The values obtained with different assay methods or kits cannot be used interchangeably. Procedures Date CPT Code Description Status Comment 06/10/2017 09078 EKG Tracing & Interpretation Completed 05/19/2017 93183 EKG Tracing & Interpretation Completed 05/11/2017 Diabetic Retinal Eye Exam Completed Document: 05/11/17 - Consult Ophthalmology/Rodrigues 04/22/2017 34271 ECHO Transthorasic Realtime 2D Completed W Doppler & Color Flow Hosp 04/22/2017 09573 ECHO Transthoracic, Real-Time Completed 2D With Doppler And Color Flow 03/02/2017 23779 Admin & Interp Of Health Risk Completed Assessment w/ Patient 07/03/2015 Diabetic Retinal Eye Exam Completed Document: 07/03/15 - Consult Ophthalmology/Skjolaas 05/03/2013 67207 Holter Monitor Review (24 hr)dr Completed review & interp only 04/21/2013 06128 EKG Tracing & Interpretation Completed 08/06/2010 74284 EKG Tracing & Interpretation Completed 10/18/2008 55056 EKG Tracing & Interpretation Completed 04/29/2006 Colonoscopy Completed Encounters Type Date Location Provider CPT E/M Dx Office Visit 08/30/2017 4:00p [facility] Elba Amezquita, N.P. 28792 I15.9 - [place] R19.7 Office Visit 07/19/2017 8:30a [facility] Radha Teresa, 24786 G47.33 [facility] JOHNSON RN, FINANCIAL RECRUITER- Z68.39 Office Visit 06/10/2017 8:40a [facility] [place] [address] I15.9 [facility] FACC G47.33 E66.09 I11.9 I77.819 E78.5 N18.9 Office Visit 05/27/2017 1:30p [facility] [place] [address] G47.33 [facility] E66.09 Office Visit 05/26/2017 3:40p [facility] [place] [address] I15.9 [facility] FACC I11.9 G47.33 Office Visit 05/19/2017 9:00a [facility] [place] [address] I15.9 [facility] FACC I11.9 E66.8 I77.819 G47.33 E78.5 R73.01 R80.1 Office Visit 05/04/2017 9:00a [facility] Gianna Vega M.D. 33563 I10 - [place] I77.819 R73.03 Office Visit 04/16/2017 2:00p [facility] Gianna Vega M.D. 67874 I10 - [place] N18.2 Office Visit 03/02/2017 9:20a [facility] Elba Amezquita, N.P. 75990 Z00.01 - [place] I10 E78.00 R73.01 G47.33 J30.9 R51 Office Visit 08/25/2016 8:40a [facility] Elba Amezquita, N.P. 87818 I10 - [place] Office Visit 06/22/2016 11:40a [facility] Elba Amezquita, N.P. 87396 J11.1 - [place] Office Visit 04/29/2016 2:20p [facility] Elba Amezquita, N.P. 16198 I10 - [place] J01.10 G44.219 Office Visit 02/26/2016 9:20a [facility] Elba Amezquita, N.P. 42290 Z00.01 - [place] E78.00 I10 R73.01 G47.33 G44.209 Office Visit 11/20/2015 8:40a [facility] - Elba Amezquita, N.P. 45786 I10 [place] F41.9 Office Visit 08/09/2015 3:00p [facility] Elba Amezquita, N.P. 02357 I10 - [place] Office Visit 06/12/2015 2:00p [facility] Elba Amezquita, N.P. 32825 J06.9 - [place] I10 Office Visit 03/25/2015 3:00p [facility] Elba Amezquita, N.P. 91591 M79.672 - [place] M25.561 R73.01 I10 F52.21 Office Visit 02/22/2015 1:00p [facility] Elba Amezquita, N.P. 06047 Z00.01 - [place] I10 G47.33 F41.9 R53.83 Office Visit 11/06/2014 4:00p [facility] Elba Amezquita, N.P. 79961 380.22 - [place] Office Visit 10/05/2014 9:00a [facility] Radha Teresa, 34032 327.23 [facility] PRASHANT ORNELAS, FINANCIAL RECRUITER- Office Visit 10/05/2014 2:40p [facility] Elba Amezquita, N.P. 59296 401.1 - [place] Office Visit 09/13/2014 11:40a [facility] Elba Amezquita, N.P. 90485 401.1 - [place] 780.60 327.23 Office Visit 08/30/2014 10:00a [facility] [place] [address] 401.1 - [place] Office Visit 08/16/2014 9:40a [facility] Elba Amezquita, N.P. 43850 401.1 - [place] 724.1 728.85 Office Visit 06/15/2014 4:00p [facility] Elba Amezquita, N.P. 93492 401.1 - [place] Office Visit 06/01/2014 8:40a [facility] Elba Amezquita, N.P. 73461 386.11 - [place] 401.9 Office Visit 11/29/2013 1:00p [facility] Elba Amezquita, N.P. 32674 V70.0 - [place] 401.1 272.4 782.3 Office Visit 10/04/2013 4:00p [facility] Elba Amezquita, N.P. 64195 891.0 - [place] Office Visit 05/05/2013 3:00p [facility] Elba Amezquita, N.P. 78555 401.1 - [place] Office Visit 04/21/2013 1:00p [facility] Elba Amezquita, N.P. 01175 780.2 - [place] Office Visit 01/25/2012 4:00p [facility] Elba Amezquita, N.P. 35740 461.9 - [place] Office Visit 12/22/2011 9:40a [facility] Elba Amezquita, N.P. 47667 465.9 - [place] Office Visit 11/13/2011 1:40p [facility] Elba Varn, N.P. 80033 461.9 - [place] Office Visit 10/23/2011 8:40a [facility] Elba Varn, N.P. 25493 401.1 - [place] 994.6 Office Visit 10/09/2011 8:40a [facility] Elba Varn, N.P. 44283 401.1 - [place] 477.9 Office Visit 03/31/2011 10:40a DO Not Use Data Architect Manager[facility] Elba Varn, 85543 V70.0 N.P. 401.1 272.4 787.91 Office Visit 02/02/2011 10:40a DO Not Use Kerrie Juarez M.D., 01680 380.10 [facility] FACP Office Visit 10/30/2010 9:20a DO Not Use Elba Varn, 34206 372.72 [facility] N.P. 401.1 Office Visit 08/06/2010 8:30a DO Not Use Data Architect Manager[facility] Elba Varn, 14426 401.1 N.P. 786.50 Office Visit 06/20/2010 1:15p DO Not Use Data Architect Manager[facility] Elba Varn, 26520 724.1 N.P. 728.85 Office Visit 05/13/2010 10:15a DO Not Use Elba Varn, 84574 787.91 Data Architect Manager[facility] N.P. Office Visit 02/05/2010 8:45a DO Not Use Elba Varn, 15131 401.1 Data Architect Manager-[place] N.P. 311 Office Visit 01/21/2010 4:00p DO Not Use Data Architect Manager[facility] Elba Varn, 28743 461.9 N.P. 401.1 Office Visit 07/25/2009 8:45a DO Not Use Data Architect Manager[facility] Elba Varn, 13132 706.2 N.P. 401.1 Office Visit 05/08/2009 4:00p DO Not Use Data Architect Manager[facility] Elba Varn, 78788 465.9 N.P. 401.1 Office Visit 04/16/2009 3:45p DO Not Use Data Architect Manager[facility] Elba Varn, 12389 729.5 N.P. 401.1 Office Visit 03/29/2009 3:45p DO Not Use Data Architect Manager[facility] Elba Varn, 41669 461.9 N.P. 401.1 Office Visit 01/22/2009 8:45a DO Not Use Data Architect Manager[facility] Elba Varn, 32325 V70.0 N.P. 401.1 V06.1 Office Visit 01/15/2009 11:45a DO Not Use [facility] Architect Manager[facility] Elba Varn, 48136 466.0 N.P. 519.11 Office Visit 10/22/2008 4:15p DO Not Use Elba Varn, 92213 786.50 Data Architect Manager[facility] N.P. 729.5 Office Visit 10/18/2008 8:30a DO Not Use Data Architect Manager[facility] Elba Varn, 50559 272.4 N.P. 401.1 Office Visit 10/04/2008 10:00a DO Not Use Data Architect Manager[facility] Elba Varn, 89948 401.1 N.P. Plan of Care Future Appointment(s):12/28/2017 9:40 am - Darryl Ordonez DO FAC at [facility]07/19/2018 9:15 am - Radha Teresa DNP, RN, FINANCIAL RECRUITER-BC at [facility]03/07/2018 8:40 am - [place]ba Amezquita, N.P. at [facility] - [facility]69/19/2018 - [facility] Essential (primary) hypertensionNew Medication:Amlodipine Besylate 2.5 mgNew Labs:Basic Metabolic PanelComments:Decrease amlodipine from 10 mg to 2.5 mg once a dayHave blood checked. If the potassium is low we will increase the spironolactone dose to 50 mg and have this rechecked againWait a week and then startkeeping track of your blood pressure. If the top number is consistently above 130 mmHg or bottom number consistently above 80 mmHg please let us know.Follow up:3 months
[2017-10-22 12:43] VITALS: BP 135/95
--- NOTE | 2017-10-22 12:48 | UC ---
Ear Complaint HPI - HPI Summary HPI Summary: This pt is a 47 y/o male presenting to [facility] c/o left ear pain x2 days. Pt [place]. Today he presents with left ear pain and discharge from left ear. He states he feels "fluid" in his left ear. He denies any injuries or trauma to his ear. Denies fever, sore throat, cough, SOB. - History of Current Complaint Chief Complaint: UCEar Stated Complaint: L EAR COMPLAINT Time Seen by Provider: 10/22/17 12:37 Hx Obtained From: Patient Onset/Duration: Lasting Days, Still Present Severity Currently: Moderate Pain Intensity: 5 Pain Scale Used: 0-10 Numeric Aggravating Factors: Nothing Alleviating Factors: Nothing Associated Signs/Symptoms: Negative: Hearing Loss, Trauma to Ear, Swelling @ - Allergies/Home Medications Allergies/Adverse Reactions: Allergies Allergy/AdvReac Type Severity Reaction Status Date / Time No Known Allergies Allergy Verified 10/22/17 12:35 Home Medications: Home Medications Ibuprofen TAB* [Motrin TAB* 400 MG] 400 mg PO Q6H PRN 10/22/17 [History Confirmed 10/22/17] Spironolactone TAB* [Aldactone TAB*] 25 mg PO DAILY 10/22/17 [History Confirmed 10/22/17] PMH/Surg Hx/FS Hx/Imm Hx Other Endocrine History: DENIES: diabetes Cardiovascular History: Hypertension - Surgical History Surgical History: None - Family History Known Family History: Positive: Hypertension, Diabetes - Social History Alcohol Use: None Substance Use Type: None Smoking Status (MU): Former Smoker Have You Smoked in the Last Year: No When Did the Patient Quit Smoking/Using Tobacco: 2006 - Immunization History Most Recent Influenza Vaccination: not this season Hx Tetanus, Diphtheria Vaccination: Yes Vaccination Up to Date: Yes Review of Systems Constitutional: Negative Skin: Negative Eyes: Negative ENT: Ear Ache - left Respiratory: Negative Cardiovascular: Negative Gastrointestinal: Negative Genitourinary: Negative Motor: Negative Neurovascular: Negative Musculoskeletal: Negative Neurological: Negative Psychological: Negative All Other Systems Reviewed And Are Negative: Yes Physical Exam - Summary Physical Exam Summary: VITAL SIGNS: Reviewed. GENERAL: Patient is a well-developed and nourished male who is lying comfortable in the stretcher. Patient is not in any acute respiratory distress. HEAD AND FACE: Normocephalic EYES: PERRLA, EOMI x 2. EARS: Hearing grossly intact. Left ear: swelling of ear canal with exudate. Right ear is normal. MOUTH: Oropharynx within normal limits. NECK: Supple, trachea is midline, no adenopathy, no JVD, no carotid bruit. CHEST: Symmetric, no tenderness at palpation LUNGS: Clear to auscultation bilaterally. No wheezing or crackles. CVS: Regular rate and rhythm, S1 and S2 present, no murmurs or gallops appreciated. ABDOMEN: Soft, non-tender. Bowel sounds are normal. No abdominal abnormal pulsations. EXTREMITIES: Full ROM in all major joints, no edema, no cyanosis or clubbing. NEURO: Alert and oriented x 3. No acute neurological deficits. Speech is normal and follows commands. SKIN: Dry and warm Triage Information Reviewed: Yes Vital Signs: Initial Vital Signs Temp 98.8 F 10/22/17 12:38 Pulse 71 10/22/17 12:38 Resp 16 10/22/17 12:38 BP 135/95 10/22/17 12:38 Pulse Ox 98 10/22/17 12:38 Vital Signs Reviewed: Yes Ear Complaint Course/Dx - Course Course Of Treatment: Pt is a 47 y/o male presenting to [facility] c/o left ear pain x2 days. Pt reports he [place]. Today he presents with left ear pain and discharge from left ear. He states he feels "fluid" in his left ear. He denies any injuries or trauma to his ear. Denies fever, sore throat, cough, SOB. On exam pt has otitis externa. Pt will be discharged home with a prescription for Ciprodex. He was instructed to return to the urgent care or go to ER immediately if any of the symptoms return or worsens. Plan of care was discussed with the patient and pt understands and agrees. All questions were answered to patient satisfaction. There were no further complaints or concerns. Pt will be discharged to home with follow up from PCP. Pt is hemodynamically stable, alert and oriented x3. The patient was found to have increased blood pressure in UC. The patient will follow up with PCP for better control of BP. - Differential Dx/Diagnosis Provider Diagnoses: Otitis externa Discharge - Sign-Out/Discharge Documenting (check all that apply): Patient Departure - Discharge - Discharge Plan Condition: Stable Disposition: HOME Prescriptions: Ciproflox/Dexameth OTIC.SUSP* [Ciprodex OTIC.SUSP*] 1 drop .SEE ORDER Q4H #1 btl Patient Education Materials: Otitis Externa (DC) Referrals: Gianna Vega MD [Primary Care Provider] - Additional Instructions: FOLLOW UP WITH YOUR PRIMARY CARE PROVIDER WITHIN ONE WEEK FOR HIGH BLOOD PRESSURE NOTED TODAY. RETURN TO URGENT CARE OR THE ED FOR ANY WORSENING OR NEW SYMPTOMS. Take medications as instructed and adhere to plan Take Acetaminophen or ibuprofen for pain or fever Increase your fluid intake Return to the or go to the emergency department if symptoms worsen Follow-up with primary care physician in next 2-3 days
== END 2017-10-22 12:59 | disposition home or self-care (01) ==
LOC: UCEAST 12:31
DX: H60.92 Unspecified otitis externa, left ear (principal); I10 Essential (primary) hypertension; Z82.49 Family history of ischemic heart disease and other diseases of the circulatory system; Z83.3 Family history of diabetes mellitus; Z87.891 Personal history of nicotine dependence
CPT/HCPCS: 99212; G0463

== ENCOUNTER 2018-10-10 19:36 | Emergency (ER) | payer OTHER ==
[2018-10-10] MEDS ORDERED: Amoxicillin PO (*) 500 MG CAP PO ONE (21:57)
[2018-10-10 22:03] VITALS: BP 172/105
--- NOTE | 2018-10-10 22:08 | UC ---
Ear Complaint HPI - HPI Summary HPI Summary: 48 yo male with right ear pain that started last PM decreased hearing mild nasal congestion Has CHAI on CPAP no f/c no sinus pressure - History of Current Complaint Chief Complaint: UCEar Stated Complaint: RIGHT EAR PAIN Time Seen by Provider: 10/10/18 21:16 Hx Obtained From: Patient Onset/Duration: Gradual Onset, Lasting Hours Severity Initially: Mild Severity Currently: Moderate Pain Intensity: 6 Pain Scale Used: 0-10 Numeric Aggravating Factors: Nothing Alleviating Factors: Nothing Associated Signs/Symptoms: Positive: Hearing Loss, URI Symptoms - Allergies/Home Medications Allergies/Adverse Reactions: Allergies Allergy/AdvReac Type Severity Reaction Status Date / Time No Known Allergies Allergy Verified 10/10/18 22:03 PMH/Surg Hx/FS Hx/Imm Hx Endocrine History: Dyslipidemia Cardiovascular History: Hypertension - Surgical History Surgical History: None - Family History Known Family History: Positive: Cardiac Disease, Hypertension, Diabetes - Social History Alcohol Use: None Substance Use Type: None Smoking Status (MU): Former Smoker Have You Smoked in the Last Year: No When Did the Patient Quit Smoking/Using Tobacco: 2006 - Immunization History Most Recent Influenza Vaccination: not this season Hx Tetanus, Diphtheria Vaccination: Yes Vaccination Up to Date: Yes Review of Systems All Other Systems Reviewed And Are Negative: Yes Constitutional: Positive: Negative Skin: Positive: Negative Eyes: Positive: Negative ENT: Positive: Ear Ache, Nasal Discharge Respiratory: Positive: Negative Cardiovascular: Positive: Negative Gastrointestinal: Positive: Negative Genitourinary: Positive: Negative Motor: Positive: Negative Neurovascular: Positive: Negative Musculoskeletal: Positive: Negative Neurological: Positive: Negative Psychological: Positive: Negative Physical Exam Triage Information Reviewed: Yes Appearance: Well-Appearing, No Pain Distress, Well-Nourished Vital Signs: Initial Vital Signs Temp 98.7 F 10/10/18 21:58 Pulse 82 10/10/18 21:58 Resp 18 10/10/18 21:58 BP 172/105 10/10/18 21:58 Pulse Ox 96 10/10/18 21:58 Vital Signs Reviewed: Yes Eyes: Positive: Conjunctiva Clear ENT: Positive: Hearing grossly normal, Pharynx normal. Negative: Nasal congestion, Nasal drainage, Tonsillar swelling, Tonsillar exudate, Trismus, Muffled voice, Hoarse voice, Sinus tenderness, Uvula midline Dental Exam: Normal Neck: Positive: Supple, Nontender, No Lymphadenopathy Respiratory: Positive: Lungs clear, Normal breath sounds, No respiratory distress, No accessory muscle use Cardiovascular: Positive: RRR, No Murmur Musculoskeletal: Positive: ROM Intact, No Edema Neurological: Positive: Alert Psychological Exam: Normal Skin Exam: Normal Ear Complaint Course/Dx - Differential Dx/Diagnosis Provider Diagnosis: Right otitis media Discharge - Sign-Out/Discharge Documenting (check all that apply): Patient Departure All imaging exams completed and their final reports reviewed: No Studies - Discharge Plan Condition: Stable Disposition: HOME Prescriptions: Amoxicillin PO (*) [Amoxicillin 875 MG (*)] 875 mg PO BID #20 tab Patient Education Materials: Ear Infection (ED) Referrals: Gianna Vega MD [Primary Care Provider] - 2 Weeks (if hearing not back to normal) Additional Instructions: recheck in 4 days if not improved - Billing Disposition and Condition Condition: STABLE Disposition: Home
== END 2018-10-10 22:11 | disposition home or self-care (01) ==
LOC: UCCORT 19:36
DX: H66.91 Otitis media, unspecified, right ear (principal); I10 Essential (primary) hypertension; Z87.891 Personal history of nicotine dependence
CPT/HCPCS: 99212; A9270-GY; G0463